=== PATIENT | male | born 1975 | race Caucasian/White ===

== ENCOUNTER 2017-04-23 02:12 | Emergency (ER) | payer OTHER ==
[~2017-04-23] VITALS: Ht 177.8 cm; Wt 81.6 kg
[2017-04-23 02:15] VITALS: BP 118/60
--- NOTE | 2017-04-23 02:18 | Emergency Room Report ---
History of Present Illness General Chief Complaint: Alcohol Intoxication Source: Patient, EMS Present Illness HPI [id number] BIBEMS for ETOH intox. Found in vomit outside of bar, lying on ground. took taxi home, left him there Abrasions noted by EMS to right side of face Patient not providing additional info d/t intox now Vitals otherwise stable on scene Allergies: Coded Allergies: UNABLE TO ASSESS (Unverified , 04/23/17) Patient History Past Medical History: unable to obtain Past Surgical History: unable to obtain Pertinent Family History: unable to obtain Social History: Reports: alcohol use Reviewed Nursing Documentation: PMH: Agreed, PSxH: Agreed Review of Systems All Other Systems: limited - ETOH intox Physical Exam Vital Signs Date Time Temp Pulse Resp B/P (MAP) Pulse Ox O2 Delivery O2 Flow Rate FiO2 04/23/17 02:01 96.8 67 18 118/60 97 Room Air Sp02 EP Interpretation: reviewed, normal General Appearance: normal inspection, well appearing, no apparent distress, alert, GCS 15, non-toxic Head: normocephalic, other - Multiple abrasions to right forehead, right side of face Eyes: bilateral eye PERRL, bilateral eye EOMI ENT: normal ENT inspection, hearing grossly normal, normal voice Neck: normal inspection, full range of motion, supple, no bony tend Respiratory: normal inspection, lungs clear, normal breath sounds, no respiratory distress, no retraction, no wheezing Cardiovascular #1: regular rate, rhythm, no edema Gastrointestinal: normal inspection, normal bowel sounds, non tender, soft, no guarding, no hernia Genitourinary: no CVA tenderness Musculoskeletal: normal inspection, back normal, normal range of motion, Mary' s Sign negative Neurologic: normal inspection, alert, responsive, speech normal Psychiatric: normal inspection, judgement/insight normal, mood/affect normal Skin: normal inspection, normal color, no rash Medical Decision Making Diagnostic Impression: Primary Impression: Acute alcoholic intoxication Qualified Codes: F10.929 - Alcohol use, unspecified with intoxication, unspecified ER Course Acute ETOH intox Minor trauma to right side of face Vitals stable CT head negative Observed in ED throughout the night Still intox at 630am at signout to Dr Negro Last Vital Signs Date Time Temp Pulse Resp B/P (MAP) Pulse Ox O2 Delivery O2 Flow Rate FiO2 04/23/17 02:01 96.8 67 18 118/60 97 Room Air Status: improved Disposition: HOME, SELF-CARE YAW ANDERSON M.D. Apr 23, 2017 02:18
[2017-04-23 04:30] VITALS: BP 109/76
[2017-04-23 06:30] VITALS: BP 131/83
[2017-04-23 06:59] VITALS: BP 131/83
--- NOTE | 2017-04-23 10:36 | Diagnostic Imaging Report ---
Indication: Altered mental status Technique: Contiguous 5 mm thick transaxial imaging of the head obtained in a Siemens Sensation [address] scanner. Soft tissue and bone windows generated. Total Dose length Product (DLP): [address] Dose Index Volume (CTDIvol): 70.38, 0.15 mGy Comparison: none Findings: The size and configuration of the cortical sulci, basal cisterns, and ventricles are within normal limits for age. There is no mass effect, midline shift, or edema identified. There is no evidence of acute hemorrhage or abnormal intra-axial or extra-axial fluid collections. The bones and soft tissues are unremarkable. Impression: No mass effect, edema or acute bleed. Note: The study is degraded by motion The CT scanner at [facility] is accredited by the [employer] and the scans are performed using dose optimization techniques as appropriate to a performed exam including Automatic Exposure control.
== END 2017-04-23 06:59 | disposition home or self-care (01) ==
LOC: EDBD 02:12 → EMR 02:24
DX: F10.929 Alcohol use, unspecified with intoxication, unspecified (principal); S00.81XA Abrasion of other part of head, initial encounter; X58.XXXA Exposure to other specified factors, initial encounter; Y93.9 Activity, unspecified; Y92.9 Unspecified place or not applicable
CPT/HCPCS: 70450; 99284